=== PATIENT | male | born 1950 | race Caucasian/White ===

== ENCOUNTER 2017-10-19 09:04 | Emergency (ER) | payer OTHER ==
[~2017-10-19] VITALS: Ht 188 cm; Wt 90.7 kg
[2017-10-19 10:36] LABS: Basophils # (auto) 0 uL; Basophils % (auto) 0.6 % (0.0-2.0); Eosinophils # (auto) 0.1 uL; Eosinophils % (auto) 1.2 % (0.0-7.0); Hematocrit 35.5 % (41.0-53.0); Hemoglobin 11.8 g/dL (13.5-17.5); Lymphocytes % (auto) 12.4 % (10.0-50.0); Mean Corpuscular Hgb Conc. 33.3 g/dL (32.0-36.0); Mean Corpuscular Volume 93.1 fL (80.0-100.0); Monocytes # (auto) 0.6 uL; Monocytes % (auto) 8.3 % (0.0-12.0); Neutrophils % (auto) 77.5 % (37.0-80.0); Nucleated Red Blood Cells % 0.1 %; Platelet Count (auto) 233 10^3/uL (140-450); Red Blood Cells 3.82 10^6/uL (4.5-5.90); Red Cell Distribution Width 14.5 % (11.8-14.3); White Blood Cell 7.7 10^3/uL (4.4-10.8)
[2017-10-19 10:40] LABS: INR 1.18 (0.9-1.15); Partial Thromboplastin Time 30.8 sec (22.64-33.71); Prothrombin Time 12.9 sec (9.37-12.3)
[2017-10-19 10:51] LABS: Alanine Aminotransferase 22 U/L (16-61); Albumin 2.2 g/dL (3.4-5.0); Alkaline Phosphatase 128 U/L (45-117); Amylase 60 U/L (25-115); Anion Gap 6 (5-15); Aspartate Aminotransferase 49 U/L (15-37); BUN/Creatinine Ratio 12.5; Bilirubin, Total 1.1 mg/dL (0.2-1.0); Blood Urea Nitrogen 9 mg/dL (7-18); Calcium 9.2 mg/dL (8.5-10.1); Carbon Dioxide 27 mmol/L (21-32); Chloride 110 mmol/L (98-107); GFR African American 139 mL/min; GFR Non-African American 115 mL/min; Glucose 87 mg/dL (74-106); Lipase 348 U/L (73-393); Potassium 3.3 mmol/L (3.5-5.1); Sodium 143 mmol/L (136-145); Total Protein 6.7 g/dL (6.4-8.2)
[2017-10-19] MEDS ORDERED: POTASSIUM CHL 10% (20 MEQ/15ML) 15ml ORAL SOLN PO ONE (11:15)
[2017-10-19] MEDS ORDERED: LIDOCAINE 1% (LOCAL ANESTH.) PF 5ml SDV IJ ONE (12:00)
[2017-10-19] MEDS ORDERED: LIDOCAINE 1% (LOCAL ANESTH.) PF 5ml SDV ONE (14:39)
[2017-10-19] MEDS ORDERED: LIDOCAINE 1% (LOCAL ANESTH.) PF 5ml SDV IN ONE (15:00)
[2017-10-19 15:14] VITALS: BP 149/84
[2017-10-19] MEDS ORDERED: RIFA550T PO (15:51)
[2017-10-19] MEDS ORDERED: FURO40TA PO (15:51)
[2017-10-19] MEDS ORDERED: POTASSIUM CHL 20 Meq TABLET PO ONE (16:00)
== END 2017-10-19 17:20 | disposition home or self-care (01) ==
LOC: ER 09:04
DX: L03.116 Cellulitis of left lower limb (principal); R18.8 Other ascites; I10 Essential (primary) hypertension; R53.1 Weakness
CPT/HCPCS: 36415; 49083; 74176; 76700; 76942; 80053; 82150; 83605; 83690; 83880; 84484; 85025; 85610; 85730; 87040; 93970

== ENCOUNTER 2017-11-13 09:35 | Emergency (ER) | payer OTHER ==
[~2017-11-13] VITALS: Ht 182.9 cm; Wt 95.3 kg
[~2017-11-13 09:35] MED LIST: FURO40TA PO; RIFA550T PO
[2017-11-13 10:26] LABS: Basophils # (auto) 0.1 uL; Eosinophils # (auto) 0.2 uL; Eosinophils % (auto) 3.1 % (0.0-7.0); Hematocrit 36.2 % (41.0-53.0); Hemoglobin 12.2 g/dL (13.5-17.5); Lymphocytes # (auto) 0.9 uL; Lymphocytes % (auto) 13.4 % (10.0-50.0); Mean Corpuscular Hemoglobin 30.6 pg (28.0-32.0); Mean Corpuscular Hgb Conc. 33.6 g/dL (32.0-36.0); Mean Corpuscular Volume 91.1 fL (80.0-100.0); Monocytes # (auto) 0.5 uL; Monocytes % (auto) 7.4 % (0.0-12.0); Neutrophils # (auto) 5.2 uL; Neutrophils % (auto) 75.1 % (37.0-80.0); Platelet Count (auto) 252 10^3/uL (140-450); Red Blood Cells 3.98 10^6/uL (4.5-5.90); Red Cell Distribution Width 14.5 % (11.8-14.3); White Blood Cell 6.9 10^3/uL (4.4-10.8)
[2017-11-13 10:39] LABS: Albumin 2.2 g/dL (3.4-5.0); BUN/Creatinine Ratio 20.7; Bilirubin, Total 0.8 mg/dL (0.2-1.0); Calcium 8.4 mg/dL (8.5-10.1); Potassium 3.2 mmol/L (3.5-5.1); Total Protein 6.8 g/dL (6.4-8.2)
[2017-11-13 10:53] LABS: INR 1.17 (0.9-1.15); Prothrombin Time 12.4 sec (9.27-12.13)
[2017-11-13] MEDS ORDERED: ALBUTEROL SULF 2.5 MG/0.5ML(0.5%) NEB SOLN NEB ONE (11:15)
[2017-11-13] MEDS ORDERED: IPRATROPIUM BROM 0.5 MG/2.5ML INH SOL NEB ONE (11:15)
[2017-11-13] MEDS ORDERED: LIDOCAINE 1% (LOCAL ANESTH.) PF 5ml SDV IJ ONE (11:30)
[2017-11-13] MEDS ORDERED: POTASSIUM CHL 20 Meq TABLET PO ONE (13:00)
[2017-11-13 13:53] VITALS: BP 163/66
== END 2017-11-13 15:07 | disposition home or self-care (01) ==
LOC: ER 09:35 → EDBD 09:35 → ER 15:07
DX: R18.8 Other ascites (principal); I10 Essential (primary) hypertension; Z88.8 Allergy status to other drugs, medicaments and biological substances
CPT/HCPCS: 10022; 36415; 49083; 76705; 76942; 80053; 85025; 85610; 93005; 94640; 99285; C1729

== ENCOUNTER 2017-12-22 09:26 | Emergency (ER) | payer OTHER ==
[~2017-12-22] VITALS: Ht 188 cm; Wt 90.7 kg
[2017-12-22] MEDS ORDERED: LIDOCAINE 1% (LOCAL ANESTH.) PF 5ml SDV ONE (09:58)
[2017-12-22] MEDS ORDERED: LIDOCAINE 1% HCL (LOCAL ANESTH.) INJ 20ML MDV ID ONE (10:00)
[2017-12-22 10:32] VITALS: BP 126/83
== END 2017-12-22 13:14 | disposition home or self-care (01) ==
LOC: ER 09:26 → EDBD 09:26 → EDUNIT# 09:26 → ER 13:14
DX: R18.8 Other ascites (principal); I10 Essential (primary) hypertension; K74.60 Unspecified cirrhosis of liver; Z88.8 Allergy status to other drugs, medicaments and biological substances
CPT/HCPCS: 49083

== ENCOUNTER → 2018-04-14 | Outpatient (CLI) | payer OTHER ==
[2018-04-14 09:39] LABS: Basophils # (auto) 0 uL; Basophils % (auto) 0.8 % (0.0-2.0); Eosinophils # (auto) 0.2 uL; Eosinophils % (auto) 4.8 % (0.0-7.0); Hematocrit 33.3 % (41.0-53.0); Hemoglobin 10.8 g/dL (13.5-17.5); Lymphocytes # (auto) 0.8 uL; Lymphocytes % (auto) 14.8 % (10.0-50.0); Mean Corpuscular Hgb Conc. 32.6 g/dL (32.0-36.0); Monocytes # (auto) 0.6 uL; Monocytes % (auto) 11.1 % (0.0-12.0); Neutrophils # (auto) 3.5 uL; Neutrophils % (auto) 68.5 % (37.0-80.0); Nucleated Red Blood Cells % 0.1 %; Platelet Count (auto) 151 10^3/uL (140-450); Red Blood Cells 3.62 10^6/uL (4.5-5.90); Red Cell Distribution Width 18.1 % (11.8-14.3); White Blood Cell 5.1 10^3/uL (4.4-10.8)
[2018-04-14 09:53] LABS: INR 1.23 (0.9-1.15); Partial Thromboplastin Time 36.9 sec (23.78-33.04)
== END | disposition home or self-care (01) ==
LOC: US 09:06
DX: R18.8 Other ascites (principal); F41.9 Anxiety disorder, unspecified; F10.21 Alcohol dependence, in remission; Z80.9 Family history of malignant neoplasm, unspecified; Z82.49 Family history of ischemic heart disease and other diseases of the circulatory system
CPT/HCPCS: 36415; 49083; 76705; 85025; 85610; 85730; C1729; 10022; 76942